=== PATIENT | female | born 1970 | race Hispanic/Latino ===

== ENCOUNTER 2021-01-06 16:16 | Emergency (ER) | payer SELFPAY ==
[~2021-01-06] VITALS: Ht 157.5 cm; Wt 68.0 kg
[2021-01-06 19:17] LABS: APPEARANCE,URINE Clear (CLEAR); BILIRUBIN,URINE Negative (NEGATIVE); COLOR,URINE Yellow (YELLOW); GLUCOSE, URINE (UA) Negative (NEGATIVE); KETONES,URINE Negative (NEGATIVE); LEUKOCYTE ESTERASE ,URINE Negative (NEGATIVE); NITRATE,URINE Negative (NEGATIVE); OCCULT BLOOD,URINE Negative (NEGATIVE); PH,URINE 5.5 (5.0-8.0); PROTEIN,URINE Negative (NEGATIVE); UROBILINOGEN,URINE 0.2 mg/dL (0.2-1.0)
[2021-01-06] MEDS ORDERED: ONDANSETRON 4MG INJ IVP ONE (19:30)
[2021-01-06] MEDS ORDERED: 0.9%NACL 1000ML 1,000 ML IV ONE (19:30)
[2021-01-06] MEDS ORDERED: KETOROLAC 30MG VIAL (30MG/ML) IV ONE (19:30)
[2021-01-06 19:38] LABS: BASOPHILS % (AUTO) 0.5 % (0.0-5.0); EOSINOPHILS % (AUTO) 2.6 % (0.0-8.0); HEMATOCRIT 41.3 % (36-48); LYMPHOCYTES % (AUTO) 35.2 % (21.0-51.0); MEAN CORPUSCULAR HEMOGLOBIN 27.6 pg (27.0-33.0); MEAN CORPUSCULAR HGB CONC 32.7 g/dL (32.0-36.0); MEAN CORPUSCULAR VOLUME 84.3 fL (79-99); MONOCYTES % (AUTO) 7.9 % (3.0-13.0); NEUTROPHILS % (AUTO) 53.1 % (40.0-77.0); PLATELET COUNT (AUTO) 325 K/uL (130-400); WHITE BLOOD COUNT (AUTO) 7.5 K/uL (4.8-10.8)
[2021-01-06 19:52] LABS: CREATININE 0.8 mg/dL (0.5-1.5); POTASSIUM 3.7 mmol/L (3.5-5.1)
[2021-01-06 19:56] LABS: ALBUMIN 3.6 g/dL (3.5-5.0); BILIRUBIN,TOTAL 0.5 mg/dL (0.2-1.0); CRP QUANTITATIVE 6.5 mg/L (0.00-9.0); TOTAL PROTEIN, SERUM 7.2 g/dL (6.0-8.3)
[2021-01-06] MEDS ORDERED: DICY20TA2 PO (20:17)
[2021-01-06 20:50] VITALS: BP 138/72
== END 2021-01-06 21:04 | disposition home or self-care (01) ==
LOC: EEVIPCON 16:16 → EDH 16:16
DX: R10.32 Left lower quadrant pain (principal)
CPT/HCPCS: 36415; 74176; 80053; 81003; 83690; 85025; 86140; J1885; J2405; J7030

== ENCOUNTER 2024-02-20 14:34 | Emergency (ER) | payer BC ==
[~2024-02-20] VITALS: Ht 157.5 cm; Wt 83.0 kg
[~2024-02-20 14:34] MED LIST: DICY20TA2 PO
[2024-02-20] MEDS ORDERED: IBUP-2077 PO (16:28)
[2024-02-20] MEDS: IBUPROFEN 800 MG TAB PO ONE (16:40)
[2024-02-20 16:48] VITALS: BP 148/56; PULSE 70; RESP 20; O2SAT 99
== END 2024-02-20 16:49 | disposition home or self-care (01) ==
LOC: EDH 14:34
DX: S00.03XA Contusion of scalp, initial encounter (principal); G44.309 Post-traumatic headache, unspecified, not intractable; E11.9 Type 2 diabetes mellitus without complications; I10 Essential (primary) hypertension; J45.909 Unspecified asthma, uncomplicated; Z79.899 Other long term (current) drug therapy; Z88.5 Allergy status to narcotic agent; Z90.710 Acquired absence of both cervix and uterus; Z98.890 Other specified postprocedural states; W01.198A Fall on same level from slipping, tripping and stumbling with subsequent striking against other object, initial encounter; Y93.89 Activity, other specified; Y92.89 Other specified places as the place of occurrence of the external cause; Y99.8 Other external cause status
CPT/HCPCS: 70450

== ENCOUNTER 2024-11-29 02:20 | Emergency (ER) | payer BC ==
[~2024-11-29] VITALS: Ht 157.5 cm; Wt 79.4 kg
[~2024-11-29 02:20] MED LIST changes: +IBUP-2077 PO
[2024-11-29] MEDS: Solu-medROL 125MG VIAL IM ONE (02:44)
[2024-11-29] MEDS: DiphenhydrAMINE HCL 50 MG/ML VIAL IM ONE (02:44)
--- NOTE | 2024-11-29 02:48 | ERN ---
General Chief Complaint: Itching Stated Complaint: REACTION IT HAIR DYE Time Seen by MD: 02:23 Source: patient History of Present Illness Initial Comments Patient is a 53-year-old, coming in to be evaluated for itchiness. Patient states that she has been very itchy after she colored her hair. Allergies: Coded Allergies: acetaminophen (Unverified Allergy, Unknown, 01/06/21) codeine (Unverified Allergy, Unknown, 01/06/21) Home Meds Active Scripts Ibuprofen (Ibuprofen 800 mg Tab) 800 Mg Tab, 800 MG PO Q8H PRN for fever or pain, #30 TAB 0 Refills Prov:HELENE KNOX PERSON[employer] SECURITY SPECIALIST 02/20/24 Dicyclomine HCl (Bentyl) 20 Mg Tab, 20 MG PO QID, #28 TAB Prov:CRISTOPHER LAUREANO 01/06/21 Past Medical History Past Medical History: Anxiety, Asthma, Diabetes-Type II, Hypertension Past Surgical History: Hysterectomy, BTL Surgical History Other: WISDOM TOOTH, RT JAW/NECK Family History Family History: Negative Social History Social History: Negative Female( History) History: Not Applicable ROS Dictation CONSTITUTIONAL: No chills, no fever, no weakness, no diaphoresis, no malaise. HEAD/FACE: No signs of trauma. EENT: No eye pain, no blurred vision, no tearing, no double vision, no ear pain, no ear discharge, no nose pain, no nasal congestion, no throat pain, no throat swelling, no mouth pain. RESPIRATORY: No cough, no orthopnea, no SOB, no stridor, no wheezing. CARDIOVASCULAR: No chest pain, no edema, no palpitations, no syncope. GASTROINTESTINAL/ABDOMINAL: No abdominal pain, no constipation, no diarrhea, no nausea, no vomiting. GENITOURINARY: No abnormal discharge, no dysuria, no frequent urination, no hematuria. No complaints of pain in the genitals. MUSCULOSKELETAL: No back pain, no gout, no joint pain, no joint swelling, no muscle pain, no muscle stiffness, no neck pain. INTEGUMENTARY: No change in color, no change in hair/nails, no dryness, no lesion, no lumps, no rash. NEUROLOGICAL/PSYCH: No anxiety, not depressed, no emotional problem, no headache, no numbness, no pre-existing deficit, no history of seizures, no tremors, no weakness. HEMATOLOGIC/LYMPHATIC: Not anemic, no history of blood clots, no apparent bleeding, no bruising, glands not swollen. All Systems Negative, Except as Noted. Physical Exam Physical Exam Dictation VITAL SIGNS: Reviewed. GENERAL APPEARANCE: Alert, oriented x3, no acute distress, obese. HEAD AND FACE: Non-traumatic. EYES: PERRL, pink conjunctivas, eyelid no trauma, anterior chamber clear. EARS: Pinnas intact and no signs of trauma or erythema. Ear canals clear and no discharge. TMs no erythema. NOSE: No discharge, no bleeding. OROPHARYNX: Mouth normal, teeth no caries, tongue pink. Pharynx clear, no erythema. Tonsils no exudates, no abscesses noted. Mucous membrane moist. NECK: Supple, non-tender, no thyromegaly, no masses, no JVD, no bruits. BREAST: Deferred. CHEST: No tenderness, no crepitus, no paradoxical movement, no retractions. LUNGS: Clear, well-ventilated, symmetric, no rales, no wheezing, no rhonchi, no stridor, good breath sounds bilaterally. HEART: Regular rate, regular rhythm, no murmur, no gallops. VASCULAR: No peripheral edema. ABDOMEN: Soft, positive bowel sounds, nondistended, no guarding, nontender, no rebound, no masses no hepatomegaly, no splenomegaly, no Littlejohn's sign, no hernias. RECTAL: Deferred. GENITAL: Deferred. NEUROLOGICAL: Normal speech, gross motor function intact, gross sensory function intact. MUSCULOSKELETAL: Neck nontender, full range of motion, back nontender, full range of motion. EXTREMITIES: Nontender, full range of motion. SKIN: Color pink, dry, no turgor, no rash, no lacerations, no abrasions, no contusions. LYMPHATICS: Deferred. Results Laboratory and Microbiology Labs Reviewed?: Yes MDM MDM: Differential diagnosis: Pruritus, allergic reaction Rationale: Tests considered and ordered secondary to shared decision making include: Previous outside records reviewed: Old ER visits. Risk of complication and/or morbidity or mortality of patient management: None Medications-Per medication reconciliation Patient comes to the ER complaining of itchy scalp. She states this happened after dying him. Patient received steroids as well as antihistamines he will be discharged in stable condition I will be prescribing topical steroids for ongoing management home. ED Course Orders Procedure Category Date Status Time Methylprednisolone PHA 11/29/24 Complete Succ 125mg (Solu-Medr 02:30 Diphenhydramine Hcl PHA 11/29/24 Complete (Benadryl Inj) 02:30 Current Medications Medications (Trade) Dose Ordered Sig/Ilan Route PRN Reason Start Time Stop Time Status Last Admin Dose Admin Diphenhydramine HCl (BENAdryl INJ) 25 mg ONCE ONCE IM 11/29/24 02:30 11/29/24 02:31 DC 11/29/24 02:44 Methylprednisolone Sodium Succinate (Solu-medROL 125MG) 125 mg ONCE ONCE IM 11/29/24 02:30 11/29/24 02:31 DC 11/29/24 02:44 Vital Signs Date Time Temp Pulse Resp B/P (MAP) Pulse Ox O2 Delivery O2 Flow Rate FiO2 11/29/24 02:49 97.5 84 17 135/78 97 Room Air* 0 21 11/29/24 02:21 96.8 84 16 138/85 96 Room Air DX & DISP Disposition: Discharge Departure Impression: Primary Impression: Allergic reaction Condition: Stable Scripts Loratadine (Loratadine) 10 Mg Tablet 1 TAB PO DAILY for allergy symptoms for 30 Days, #30 TAB 0 Refills Prov: ADDIS KUMAR MD 11/29/24 Hydrocortisone (Cortizone 10) 1 % Gel..gram. 28 GM TP BID for 7 Days, #1 TUBE Prov: ADDIS KUMAR MD 11/29/24 Additional Instructions: FOLLOW-UP WITH PRIMARY CARE PROVIDER IN 1 TO 2 DAYS. TAKE MEDICATIONS DIRECTED HERE IN THE EMERGENCY ROOM. OKAY TO CONTINUE HOME MEDICATIONS UNLESS OTHERWISE DISCUSSED DURING YOUR VISIT IN THE EMERGENCY ROOM TODAY. RETURN TO YOUR NEAREST EMERGENCY ROOM IF SYMPTOMS WORSEN OR IF THERE IS NO IMPROVEMENT. CALL 911 IF YOU NEED IMMEDIATE ASSISTANCE. TAKE TYLENOL [id number] NEEDED AND IF NO CONTRAINDICATIONS ARE PRESENT. INCREASE ORAL HYDRATION. A WOUND CULTURE OR URINE CULTURE WAS ORDERED HERE IN THE EMERGENCY ROOM DEPARTMENT PLEASE FOLLOW-UP WITH PRIMARY CARE PROVIDER AND ADVISE THEM TO GET REPEAT PORTS FROM OUR FACILITY. IF YOU HAD ANY LAMONT WRAP/SPLINTS THAT WERE APPLIED HERE, PLEASE DO NOT REMOVE THEM UNTIL YOU SEE YOUR PRIMARY CARE OR SPECIALTY. Referrals: Referrals: HAZEL SAWYER MD (PCP) Time of Disposition: 03:11 ADDIS KUMAR MD November 29, 2024 02:47
[2024-11-29] MEDS ORDERED: LORA10TA7 PO (03:12)
[2024-11-29] MEDS ORDERED: HYDR28GE5 TP (03:12)
[2024-11-29 03:13] VITALS: BP 130/74; PULSE 79; RESP 15; TEMP 97.6; O2SAT 98
== END 2024-11-29 03:18 | disposition home or self-care (01) ==
LOC: EDH 02:20
DX: T78.40XA Allergy, unspecified, initial encounter (principal); E11.9 Type 2 diabetes mellitus without complications; I10 Essential (primary) hypertension; J45.909 Unspecified asthma, uncomplicated; Z88.5 Allergy status to narcotic agent; Z90.710 Acquired absence of both cervix and uterus; X58.XXXA Exposure to other specified factors, initial encounter
CPT/HCPCS: 99284; 96372 ×2; J2919; J1200